=== PATIENT | male | born 2000 | race Caucasian/White ===

== ENCOUNTER 2019-01-20 11:10 | Inpatient (IN) | payer OTHER ==
[~2019-01-20] VITALS: Ht 180.3 cm; Wt 75.6 kg
[2019-01-20] MEDS ORDERED: KETOROLAC 30 MG/1 ML IVPush ONE (11:30)
[2019-01-20] MEDS ORDERED: AMPICILLIN/SULBACTAM 3 GM in SODIUM CHLORIDE 0.9% 100 ML IV ONE (11:30)
[2019-01-20] MEDS ORDERED: SODIUM CHLORIDE FLUSH 10ML SYR IVF ONE (11:30)
[2019-01-20] MEDS ORDERED: KETOROLAC 30 MG/1 ML ONE (11:48)
[2019-01-20 11:58] LABS: MEAN CORPUSCULAR HEMOGLOBIN 31.7 pg (27.5-34.5); MEAN CORPUSCULAR HGB CONC 33.8 g/dL (33.2-36.2); MEAN CORPUSCULAR VOLUME 93.9 fL (81-97); MEAN PLATELET VOLUME 7.1 fL (7.4-10.4); PLATELET COUNT 268 x10^3/uL (130-400); RED BLOOD COUNT 4.95 x10^6/uL (4.38-5.82); RED CELL DISTRIBUTION WIDTH 13.1 % (9.4-14.8)
[2019-01-20] MEDS ORDERED: PLEASE ENTER ALLERGIES MC SCH (12:00)
--- NOTE | 2019-01-20 12:01 | NUR ---
IV PLACED, LABS DRAWN WITH START. IV MEDICATIONS GIVEN PER ERP ORDER. PT AND FAMILY INFORMED OF POC. CALL LIGHT WITHIN REACH.
[2019-01-20 12:05] LABS: ALBUMIN 3.8 g/dL (3.4-5.0); ANION GAP 8 mmol/L (5-15); CALCIUM 9.3 mg/dL (8.5-10.1); CHLORIDE 102 mmol/L (98-107)
--- NOTE | 2019-01-20 12:09 | NUR ---
PT TO BE ADMITTED, PT INFORMED OF ADMIT AND POC. CALL LIGHT WITHIN REACH, MOTHER AT BS.
[2019-01-20] MEDS ORDERED: VANCOMYCIN PER PHARMACY MC ONE (12:30)
[2019-01-20 12:31] LABS: MD YES
[2019-01-20 12:33] LABS: <PLATELET ESTIMATE> ADEQUATE; <PLT MORPHOLOGY> NORMAL PLT MORPH; <RBC MORPHOLOGY> NORMAL; BANDS%(MANUAL) 1 % (0-7); BASOS% (MANUAL) 1 % (0-1); LYMPH#(MANUAL) 1.78 x10^3/uL (1-6.1); LYMPHS% (MANUAL) 6 % (22-44); MONOS#(MANUAL) 2.38 x10^3/uL (0.3-2.7); MONOS% (MANUAL) 8 % (2-9); SEG#(MANUAL) 24.95 x10^3/uL (1.8-8); SEGS% (MANUAL) 84 % (42-75)
--- NOTE | 2019-01-20 12:59 | NUR ---
BLOOD CULTURES X 2 DRAWN. UNASYN COMPLETED, VANCOMYCIN INFUSING AT THIS TIME. VSS/UPDATED IN COMPUTER.
[2019-01-20] MEDS ORDERED: VANCOMYCIN 1,500 MG in SODIUM CHLORIDE 0.9% 250 ML IV ONE (13:00)
[2019-01-20] MEDS ORDERED: PHARMACOKINETIC CONSULTATION MC ONE (13:00)
[2019-01-20] MEDS ORDERED: DOCUSATE 100 MG CAPSULE PO PRN (13:30)
[2019-01-20] MEDS ORDERED: KETOROLAC 30 MG/1 ML IV PRN (13:30)
[2019-01-20] MEDS ORDERED: ACETAMINOPHEN 325 MG TABLET PO PRN (13:30)
[2019-01-20] MEDS ORDERED: ONDANSETRON ODT 4 MG PO PRN (13:30)
[2019-01-20] MEDS: ENOXAPARIN 40 MG/0.4 ML SQ SCH (13:30)
[2019-01-20] MEDS ORDERED: ONDANSETRON 2MG/ML, 2ML IVPush PRN (13:30)
[2019-01-20] MEDS ORDERED: IBUPROFEN 600 MG TABLET PO PRN (13:30)
[2019-01-20] MEDS: AMPICILLIN/SULBACTAM 3 GM in SODIUM CHLORIDE 0.9% 100 ML IV SCH ×2 (13:42→20:54)
--- NOTE | 2019-01-20 13:43 | NUR ---
REPORT TO ANDREI AUSTIN, PT READY FOR TRANSPORT.
[2019-01-20 14:54] VITALS: BP 109/70
[2019-01-20] MEDS: NS + 20MEQ KCL 1,000 ML IV SCH ×2 (15:31→22:26)
[2019-01-20 15:38] VITALS: BP 109/70
[2019-01-20 21:57] VITALS: BP 122/70
[2019-01-21 01:57] VITALS: BP 95/62
[2019-01-21] MEDS: AMPICILLIN/SULBACTAM 3 GM in SODIUM CHLORIDE 0.9% 100 ML IV SCH ×4 (02:32→20:43)
[2019-01-21 04:59] LABS: MEAN CORPUSCULAR HGB CONC 33.9 g/dL (33.2-36.2); MEAN CORPUSCULAR VOLUME 94.3 fL (81-97); MEAN PLATELET VOLUME 7.5 fL (7.4-10.4); PLATELET COUNT 248 x10^3/uL (130-400); RED BLOOD COUNT 4.39 x10^6/uL (4.38-5.82); RED CELL DISTRIBUTION WIDTH 12.8 % (9.4-14.8)
[2019-01-21 05:13] LABS: ANION GAP 7 mmol/L (5-15); CALCIUM 8.3 mg/dL (8.5-10.1); CHLORIDE 108 mmol/L (98-107); CREATININE 0.87 mg/dL (0.7-1.3)
[2019-01-21] MEDS: NS + 20MEQ KCL 1,000 ML IV SCH ×3 (05:18→19:04)
[2019-01-21 06:02] LABS: BASOPHILS # (AUTO) 0.01 x10^3/uL (0-0.3); BASOPHILS % (AUTO) 0 % (0-1); EOSINOPHILS # (AUTO) 0.34 x10^3/uL (0-0.8); EOSINOPHILS % (AUTO) 1 % (1-7); LYMPHOCYTES # (AUTO) 1.92 x10^3/uL (1-6.1); LYMPHOCYTES % (AUTO) 8 % (22-44); MD SCAN; MONOCYTES # (AUTO) 2.32 x10^3/uL (0-1.4); MONOCYTES % (AUTO) 9 % (2-9); NEUTROPHILS # (AUTO) 20.66 x10^3/uL (1.8-8.0); NEUTROPHILS % (AUTO) 82 % (42-75)
[2019-01-21 07:20] VITALS: BP 105/65
[2019-01-21] MEDS: ENOXAPARIN 40 MG/0.4 ML SQ SCH (13:30)
[2019-01-21 13:40] VITALS: BP 116/57
[2019-01-21] MEDS: LACTOBACILLUS CHEW TABLET PO SCH ×2 (16:20→20:44)
[2019-01-21 19:45] VITALS: BP 116/65
[2019-01-22] MEDS: NS + 20MEQ KCL 1,000 ML IV SCH ×3 (02:45→21:55)
[2019-01-22] MEDS: AMPICILLIN/SULBACTAM 3 GM in SODIUM CHLORIDE 0.9% 100 ML IV SCH ×5 (02:45→21:10)
[2019-01-22 03:37] VITALS: BP 118/67
[2019-01-22 05:33] LABS: MEAN CORPUSCULAR HEMOGLOBIN 31.9 pg (27.5-34.5); MEAN CORPUSCULAR HGB CONC 33.7 g/dL (33.2-36.2); MEAN CORPUSCULAR VOLUME 94.6 fL (81-97); MEAN PLATELET VOLUME 7.5 fL (7.4-10.4); PLATELET COUNT 231 x10^3/uL (130-400); RED BLOOD COUNT 4.18 x10^6/uL (4.38-5.82); RED CELL DISTRIBUTION WIDTH 12.5 % (9.4-14.8)
[2019-01-22] MEDS: LACTOBACILLUS CHEW TABLET PO SCH ×4 (06:01→21:10)
[2019-01-22 06:19] LABS: BASOPHILS # (AUTO) 0.02 x10^3/uL (0-0.3); BASOPHILS % (AUTO) 0 % (0-1); EOSINOPHILS # (AUTO) 0.46 x10^3/uL (0-0.8); EOSINOPHILS % (AUTO) 3 % (1-7); LYMPHOCYTES # (AUTO) 1.97 x10^3/uL (1-6.1); LYMPHOCYTES % (AUTO) 11 % (22-44); MD SCAN; MONOCYTES # (AUTO) 2.33 x10^3/uL (0-1.4); MONOCYTES % (AUTO) 13 % (2-9); NEUTROPHILS % (AUTO) 74 % (42-75)
[2019-01-22 08:27] VITALS: BP 110/58
[2019-01-22] MEDS: ENOXAPARIN 40 MG/0.4 ML SQ SCH (13:30)
[2019-01-22 14:01] VITALS: BP 128/69
[2019-01-22 20:59] VITALS: BP 132/71
[2019-01-23 02:35] VITALS: BP 115/64
[2019-01-23] MEDS: AMPICILLIN/SULBACTAM 3 GM in SODIUM CHLORIDE 0.9% 100 ML IV SCH ×4 (03:15→20:25)
[2019-01-23] MEDS: LACTOBACILLUS CHEW TABLET PO SCH ×4 (05:11→20:25)
[2019-01-23] MEDS: NS + 20MEQ KCL 1,000 ML IV SCH ×3 (05:17→23:53)
[2019-01-23 05:57] LABS: ANION GAP 7 mmol/L (5-15); CALCIUM 9.2 mg/dL (8.5-10.1); CHLORIDE 108 mmol/L (98-107)
[2019-01-23 05:58] LABS: CREATININE 0.68 mg/dL (0.7-1.3)
[2019-01-23 06:17] LABS: MEAN CORPUSCULAR HEMOGLOBIN 31.8 pg (27.5-34.5); MEAN CORPUSCULAR HGB CONC 33.8 g/dL (33.2-36.2); MEAN CORPUSCULAR VOLUME 94.1 fL (81-97); MEAN PLATELET VOLUME 7.7 fL (7.4-10.4); PLATELET COUNT 304 x10^3/uL (130-400); RED BLOOD COUNT 4.48 x10^6/uL (4.38-5.82); RED CELL DISTRIBUTION WIDTH 12.8 % (9.4-14.8)
[2019-01-23 06:41] LABS: BASOPHILS # (AUTO) 0.05 x10^3/uL (0-0.3); BASOPHILS % (AUTO) 0 % (0-1); EOSINOPHILS # (AUTO) 0.48 x10^3/uL (0-0.8); EOSINOPHILS % (AUTO) 3 % (1-7); LYMPHOCYTES % (AUTO) 14 % (22-44); MD SCAN; MONOCYTES # (AUTO) 1.66 x10^3/uL (0-1.4); MONOCYTES % (AUTO) 11 % (2-9); NEUTROPHILS # (AUTO) 11.02 x10^3/uL (1.8-8.0); NEUTROPHILS % (AUTO) 72 % (42-75)
[2019-01-23 06:51] VITALS: BP 97/58
[2019-01-23 12:46] VITALS: BP 127/76
[2019-01-23] MEDS: ENOXAPARIN 40 MG/0.4 ML SQ SCH (13:30)
[2019-01-23 19:05] VITALS: BP 140/66
[2019-01-24] MEDS: AMPICILLIN/SULBACTAM 3 GM in SODIUM CHLORIDE 0.9% 100 ML IV SCH ×2 (02:56→09:06)
[2019-01-24 02:57] VITALS: BP 132/79
[2019-01-24 05:02] LABS: BASOPHILS # (AUTO) 0.05 x10^3/uL (0-0.3); BASOPHILS % (AUTO) 0 % (0-1); EOSINOPHILS # (AUTO) 0.47 x10^3/uL (0-0.8); EOSINOPHILS % (AUTO) 4 % (1-7); LYMPHOCYTES # (AUTO) 2.58 x10^3/uL (1-6.1); LYMPHOCYTES % (AUTO) 19 % (22-44); MD NO; MEAN CORPUSCULAR HEMOGLOBIN 32.2 pg (27.5-34.5); MEAN CORPUSCULAR HGB CONC 33.9 g/dL (33.2-36.2); MEAN CORPUSCULAR VOLUME 94.8 fL (81-97); MEAN PLATELET VOLUME 7.6 fL (7.4-10.4); MONOCYTES # (AUTO) 1.43 x10^3/uL (0-1.4); MONOCYTES % (AUTO) 11 % (2-9); NEUTROPHILS % (AUTO) 66 % (42-75); PLATELET COUNT 311 x10^3/uL (130-400); RED BLOOD COUNT 4.51 x10^6/uL (4.38-5.82); RED CELL DISTRIBUTION WIDTH 12.7 % (9.4-14.8)
[2019-01-24] MEDS: LACTOBACILLUS CHEW TABLET PO SCH ×2 (06:08→11:12)
[2019-01-24 09:03] VITALS: BP 129/79
[2019-01-24] MEDS: NS + 20MEQ KCL 1,000 ML IV SCH (09:06)
[2019-01-24] MEDS ORDERED: AMOX1TAB64 PO (10:56)
== END 2019-01-24 12:40 | disposition home or self-care (01) | DRG 872 ==
LOC: ED 12:11 → 3N 13:22 → DCLOUNGE 01-24 12:33
PROVIDERS: ADMIT Family Medicine; ATTEND Family Medicine
DX: A41.9 Sepsis, unspecified organism (principal); L03.114 Cellulitis of left upper limb; F17.200 Nicotine dependence, unspecified, uncomplicated; T14.8XXA Other injury of unspecified body region, initial encounter; V00.131A Fall from skateboard, initial encounter; Y93.51 Activity, roller skating (inline) and skateboarding; Y92.89 Other specified places as the place of occurrence of the external cause; Y99.8 Other external cause status
CPT/HCPCS: 36415; 80048; 82040; 83605; 84145; 85025; 87040; 99285; G0378; J0295; J1885; J3370; J3480; J7050